=== PATIENT | female | born 1970 | race Caucasian/White ===

== ENCOUNTER 2020-08-19 23:05 | Observation (INO) | payer BC, SELFPAY ==
[2020-08-19 23:06] VITALS: BP 110/85; PULSE 113; RESP 18; TEMP 36.6; O2SAT 99; BMI 27.4
[2020-08-20] VITALS (10 sets, daily range): BP systolic 108–154; BP diastolic 70–100; PULSE 83–100; RESP 14–20; TEMP 36.6–37.2; O2SAT 97–100; BMI 24.5
--- NOTE | 2020-08-20 00:44 | ED.VIS.PED ---
History of Present Illness - History of Present Illness Chief Complaint: Mental Health Informant: Patient, - - Police Narrative: Patient brought in by police secondary to talking to herself and bizarre behavior. Patient is difficult to redirect and does not answer Past Medical History - Allergies and Home Meds Allergies/Adverse Reactions: Allergies No Known Allergies Allergy (Verified 08/19/20 23:08) - Medical/Surgical History Primary Care Physician: Care Physician,No Primary [Primary Care Provider] - Physical Exam Vital Signs/Narrative: Vital Signs Temp Pulse Resp BP Pulse Ox 97.8 F 113 H 18 110/85 H 99 08/19/20 23:06 08/19/20 23:06 08/19/20 23:06 08/19/20 23:06 08/19/20 23:06 ED Disposition - Plan for ED Patient: Referrals: Care Physician,No Primary [Primary Care Provider] -
--- NOTE | 2020-08-20 00:47 | ED.DCSUM_ITS ---
History of Present Illness Chief Complaint: Mental Health Informant: Patient, - - Police Onset: Today Narrative: Patient brought in with pink slip by police secondary to bizarre behavior and talking to people who were not there. Patient is difficult to redirect and has tangential thinking and cannot stay on a particular topic to answer questions. She tells me she said increased stress the last couple weeks so she did agree to an evaluation here. Patient cannot answer simple questions for me such as what her address is. She will start to list a house number, then suddenly starts discounting on her fingers and forgets what the initial question was. At one point she turned suddenly to look into the corner of the room and said well, hello there as if she was speaking to someone that was there. She commented that the person was pretty but was not able to describe them when I asked her. Nursing staff was able to speak with the patient's who state that she is never had anything like this in the past. She does reportedly take a couple medicines for blood pressure. She reportedly stopped taking her gabapentin several weeks ago. - Past Medical History (1) Hypertension Status: Chronic Past Medical History - Allergies and Home Meds Allergies/Adverse Reactions: Allergies No Known Allergies Allergy (Verified 08/19/20 23:08) Primary Care Physician: Care Physician,No Primary [Primary Care Provider] - Prior records reviewed: Yes Lives: Spouse/ Significant Other Smoking Status: Never smoker Review of Systems ROS: Unable to Obtain - Patient not able to be redirected to answer questions appropriately Physical Exam Vital Signs/Narrative: Vital Signs Temp Pulse Resp BP Pulse Ox 08/19/20 23:06 97.8 F 113 H 18 110/85 H 99 General: Well nourished, Well developed Head: Normocephalic ENT: Moist mucous membranes Neck: Supple Cardiovascular: Regular rate, Regular rhythm Respiratory: No distress, CTA bilaterally Abdomen: Soft, Nontender Neurological: Alert, - - Alert to self. Cannot tell me where she is or what her address is. Tells me that she lives with my and mommy and daddy.. Negative for: Oriented x3 Psych: Pressured Speech, Flight of Ideas Diagnostic/Tx/Re-eval 08/20/20 00:50 Mucosa - Nose SARS-CoV-2 Antigen (Rapid) - Final Laboratory Results 08/20/20 08/20/20 08/20/20 00:45 00:45 00:45 WBC 8.4 RBC 5.30 Hgb 13.2 Hct 41.3 MCV 77.9 L MCH 24.9 L MCHC 32.0 RDW Std Deviation 38.1 RDW Coeff of Ruben 13.5 Plt Count 438 MPV 8.8 Immature Gran % (Auto) 0.100 Neut % (Auto) 68.8 Lymph % (Auto) 22.8 [place] % (Auto) 6.2 Eos % (Auto) 1.4 Baso % (Auto) 0.7 Absolute Neuts (auto) 5.7 Absolute Lymphs (auto) 1.91 Nucleated RBC % 0 Sodium 137 Potassium 2.7 L* Chloride 110 H Carbon Dioxide 21.0 Anion Gap 6 BUN 9 Creatinine 0.77 Estim Creat Clear Calc 73.91 Est GFR (MDRD) Af Amer 103 Est GFR (MDRD) Non-Af 85 BUN/Creatinine Ratio 11.7 Glucose 84 Calcium 8.4 L Serum , Qual Urine Opiates Screen Urine Methadone Screen Ur Barbiturates Screen Ur Phencyclidine Scrn Ur Amphetamines Screen U Methamphetamin-MDMA U Benzodiazepines Scrn Urine Cocaine Screen U Cannabinoids Screen Ur Drug Screen Comment Ethyl Alcohol < 3.0 08/20/20 08/20/20 00:45 03:05 WBC RBC Hgb Hct MCV MCH MCHC RDW Std Deviation RDW Coeff of Ruben Plt Count MPV Immature Gran % (Auto) Neut % (Auto) Lymph % (Auto) [place] % (Auto) Eos % (Auto) Baso % (Auto) Absolute Neuts (auto) Absolute Lymphs (auto) Nucleated RBC % Sodium Potassium Chloride Carbon Dioxide Anion Gap BUN Creatinine Estim Creat Clear Calc Est GFR (MDRD) Af Amer Est GFR (MDRD) Non-Af BUN/Creatinine Ratio Glucose Calcium Serum , Qual NEGATIVE Urine Opiates Screen NEGATIVE Urine Methadone Screen NEGATIVE Ur Barbiturates Screen NEGATIVE Ur Phencyclidine Scrn NEGATIVE Ur Amphetamines Screen NEGATIVE U Methamphetamin-MDMA NEGATIVE U Benzodiazepines Scrn NEGATIVE Urine Cocaine Screen NEGATIVE U Cannabinoids Screen NEGATIVE Ur Drug Screen Comment Ethyl Alcohol Patient has been observed going through items in the room. Removal items needed to be taken out of the room. Patient is agitated, moving about the room, talking to people that are not there. She is redirectable. Any history from the patient is extremely difficult as she has extreme tangential thinking. Blood work is significant only for potassium low at 2.7. She is given 40 mEq p.o. potassium replacement. Alcohol and urine tox screen are negative. Patient was [facility] with [facility]. Liss was able to speak with the patient's by phone as well. At this time she will be looking for placement for further psychiatric evaluation. Addendum: Patient has been accepted for transfer to [facility]. Disposition: [facility] Disposition - Plan for ED Patient: Disposition: Psychiatric Hospital or Unit Diagnosis: Psychosis Referrals: Care Physician,No Primary [Primary Care Provider] -
[2020-08-20 00:52] LABS: Absolute Lymphocyte Count 1.91 X10^3/uL (0.83-4.51); Absolute Neutrophil Count 5.7 X10^3/uL (2.0-7.7); Basophil# 0.06 X10^3/uL; Basophil% 0.7 % (0-1); Eosinophil# 0.12 X10^3/uL; Eosinophils% 1.4 % (0-5); Hematocrit 41.3 % (37-47); Hemoglobin 13.2 g/dL (12.0-15.0); Lymphocyte # 1.91 X10^3/ul (4.0); Lymphocyte % 22.8 % (19-41); Mean Corpuscular Hgb 24.9 pg (27.0-32.0); Mean Corpuscular Volume 77.9 fL (81-99); Mean Platelet Vol. 8.8 fl (6.2-12.0); Monocyte# 0.52 X10^3/uL; Monocyte% 6.2 % (0-10); NRBC Flagged by Analyzer 0 % (0-5); Neutrophil # 5.74 X10^3/uL (2.7-7.7); Neutrophil % 68.8 % (47-70); Platelet Count 438 K/mm3 (150-450); RBC Distribution Width CV 13.5 % (11.6-14.6); RBC Distribution Width SD 38.1 fl (35.1-43.9); White Blood Count 8.4 K/mm3 (4.4-11.0)
[2020-08-20 01:09] LABS: Anion Gap 6 (5-15); BUN 9 mg/dL (7-18); BUN/Creat Ratio 11.7 RATIO (10-20); Calcium,Total 8.4 mg/dL (8.5-10.1); Chloride 110 mmol/L (98-107); Creatinine, Serum 0.77 mg/dL (0.55-1.02); EST Glomerular Filtration Rate 85 mL/min (>60); Est Glom Filt Rate - Afr Amer 103 mL/min (>60); Estimated Creatinine Clearance 73.91 ml/min; Glucose 84 mg/dL (74-106); Potassium 2.7 mmol/L (3.5-5.1); Sodium Level 137 mmol/L (136-145)
[2020-08-20 01:13] LABS: Internal QC Validated? YES +Cl - CLEAR BKGD; Pregnancy, Serum, hCG Quali. NEGATIVE Negative
[2020-08-20 01:17] LABS: Alcohol, Blood (Medical)-Serum < 3.0 mg/dL
[2020-08-20 03:59] LABS: Amphetamine Urine VISTA NEGATIVE (<1000 ng/mL); Barbiturate Urine VISTA NEGATIVE (< 200 ng/mL); Benzodiazepine Urine VISTA NEGATIVE (< 200 ng/mL); Cocaine Urine VISTA NEGATIVE (< 300 ng/mL); Ecstacy Urine VISTA NEGATIVE (< 500 ng/mL); Methadone Urine VISTA NEGATIVE (< 300 ng/mL); PCP Urine VISTA NEGATIVE (< 25 ng/mL); THC Urine VISTA NEGATIVE (< 50 ng/mL); Vista UDS pH Range 6
--- NOTE | 2020-08-20 04:01 | ED.RN ---
PAGED CRISIS TO SPEAK WITH THIS PT, SANTA IS COPPERSMITH APPRENTICE
--- NOTE | 2020-08-20 04:44 | ED.RN ---
PT CONTINUES TO TALK TO PEOPLE WHO ARE NOT IN THE ROOM. MOSTLY HER GRANDCHILDREN AND SPOUSE. PT DID SPEAK WITH CRISIS FOR A FEW MINUTES BUT STATED THAT SHE NEEDED TO HANG UP THE PHONE BECAUSE SHE NEEDED TO CARE FOR HER GRANDCHILDREN AND A SITUATION OUTSIDE THE ROOM. I ASKED PT IF SHE WANTED SOMETHING TO HELP HER SLEEP IT WAS 0430 AND SHE HASN'T BEEN TO SLEEP YET. SHE SAID THAT WOULD BE OKAY AND A SPRITE WELL.
[2020-08-20] MEDS: Zolpidem Tartrate 5 MG Tablet PO (04:53)
--- NOTE | 2020-08-20 06:56 | ED.RN ---
CALLED PTS , DOTTY TO UPDATE HIM ON HER PLACEMENT. DOTTY WAS VERY ANGRY THAT PT WAS GETTING PLACED AT A PSYCHIATRIC FACILITY. ALSO ANGRY THAT SHE WAS GETTING PLACED IN [place] AND WANTED HER PLACED WITH THE [facility]. WAS EDUCATED ON PLACEMENT PROCEDURES WITH CRISIS. HE STILL DIDN'T LIKE MY ANSWERS. I PAGED CRISIS TO HAVE THEM TALK WITH SPOUSE THEY ARE THE ONES THAT FIND FACILITIES TO PLACE PT. CHARGE NURSE UPDATED. TRANSPORT SCHEDULED IN 15 MINUTES, CHARGE NURSE STATES DO NOT CANCEL.
--- NOTE | 2020-08-20 07:37 | CT_ITS ---
STUDY: CT BRAIN WITHOUT CONTRAST REASON FOR EXAM: Female, 50 years old. MENTAL STATUS CHANGE -- HALLUCINATIONS RADIATION DOSAGE (If Supplied By Facility): CTDIvol = ( 44.99 ) mGy, DLP = ( 779.24 ) mGycm TECHNIQUE: Transaxial CT imaging of the brain was performed without administration of intravenous contrast material. Individualized dose optimization techniques were used for this CT. COMPARISON: No relevant priors. FINDINGS: Normal soft tissue structures. Normal calvarium. Normal size ventricles and extra-axial spaces for the patient''s age. Normal white matter tracts of the cerebral hemispheres. Normal basal ganglia and thalami. Normal brainstem. Normal cerebellum. There is no intracranial hemorrhage. There are no findings of an acute ischemic infarction. Normal visualized paranasal sinuses. CT/Brain/Head without Contrast IMPRESSION: Normal unenhanced CT scan of the brain. Electronically Signed: Dwaine Buck MD at 8:55 EST , Service support ,
--- NOTE | 2020-08-20 07:53 | ED.RN ---
THIS RN HAD A LONG PHONE CONVERSATION WITH PT . STATES SHE IS NOT SUICIDAL OR HOMICIDAL., NOR IS SHE A THREAT TO OTHERS. STATES THIS WILL NOT HAPPEN. STATES I ONLY WANT HER TRANSFERRED A MEDICAL TRANSFER, NOT A PSYCHIATRIC TRANSFER. THIS RN LISTENED TO PTS CONCERN ABOUT BRAIN TUMOR. EXTRA TESTS TO BE ORDERED. PT CONTINUES. TO TALK TO PEOPLE WHO DO NOT EXISTS. THIS RN PAGED CRISIS AND UPDATED THEM AGAIN ON POSITION. CRISES TO CONTACT . IF PREFERS PT WILL BE DISCHARGED HOME WITH HIM
--- NOTE | 2020-08-20 08:04 | ED.RN ---
PT CURRENTLY IN ROOM TALKING AGAIN WITH PEOPLE WHO DO NOT EXISTS. PT THEN STRIPS NAKED AND BEGINS TO WRAP HERSELF IN THE ROOM CURTAIN. PT REDIRECTED TO DRESS
--- NOTE | 2020-08-20 08:09 | ED.RN ---
POOL CALLS BACK. TALKED TO . IF CT SCAN AND THYROID TESTS ARE NORMAL HE PREFERS TO TAKE HER HOME. DR PINEDA UPDATED HE HAS TAKEN OVER CARE
[2020-08-20 08:12] LABS: Mucous, Urine 0 SEEN /hpf (<or=2+)
[2020-08-20 08:28] LABS: Color, Urine Yellow (Yellow); Glucose, Dipstick Normal (Normal); Ketone-Dipstick Negative (Negative); Leukocyte Esterase-Dipstick 25 /ul (Negative); Nitrite-Dipstick Positive (Negative); Occult Blood-Urine 10 /ul (Negative); Protein-Dipstick Negative (Negative); Specific Gravity, Urine 1.015 (1.002-1.030); Urine Bilirubin Dipstick Negative (Negative); Urine Clarity Clear (Clear); Urine Urobilinogen Normal (Normal)
[2020-08-20 08:36] LABS: Red Blood Cells-Urine 0-5 SEEN /hpf (0-5); White Blood Cells 0-5 SEEN /hpf (0-5)
[2020-08-20 08:37] LABS: Bacteria 2+ /hpf (None Seen); Squamous Epithelial Cells - UA 0-5 SEEN /hpf (5-10)
[2020-08-20 08:38] LABS: Thyroid Stim Hormone (TSH) 2.75 uIU/mL (0.358-3.74)
--- NOTE | 2020-08-20 09:18 | ED.RN ---
DR TERAN PT FAMILY/ DOES NOT WANT PT ADMITTED TO THIS FACILITY. REQUESTS PT TO BE TRANSFERRED TO [facility] OR [facility]
--- NOTE | 2020-08-20 09:59 | ED.RN ---
pt continues to come out of room, pt continues talking with individuals who are not there. pt is redirectable. pt currently asking for aan emesis basin so her friend can vomit in it
[2020-08-20] MEDS: Ceftriaxone 1 GM/50 ML BAG IV (10:34)
--- NOTE | 2020-08-20 10:42 | ED.RN ---
dr hunt talked with . states ok with admission to [facility]
--- NOTE | 2020-08-20 11:53 | HP.PCM_ITS ---
History of Present Illness Date of Admission: 08/20/20 Chief Complaint: Mental health The patient is a 50 year old F with a PMH as below who presented to the hospital by police with a [place] pink slip secondary to bizarre behavior. She was actively hallucinating and has very tangential thinking and has difficulty get a history from some most of the history was obtained from chart review. Per the she has never behaved like this before. She has not been sick prior to today no symptoms of infection previously. She denies any fevers or chills or any signs of dysuria. She does think she is in [place] and does not know why she is here. Initially she was found to be hypokalemic with a potassium of 2.7 which was replaced and she had asymptomatic bacteriuria with 2+ urine bacteria, 25 leukocyte esterase, and a positive nitrite without fever or leukocytosis. Transportation arrangements were made to an inpatient psychiatric facility however the adamantly refused he would not like her to be transferred to an inpatient psych unit. Past Medical History Past Medical History (Chronic Problems): Chronic Problems Hypertension (Chronic) Allergies No Known Allergies Allergy (Verified 08/19/20 23:08) Home Medications: Ambulatory Orders Medication Instructions Recorded Estradiol 0.5 mg PO DAILY 08/20/20 Gabapentin 08/20/20 Losartan Potassium 25 mg PO DAILY 08/20/20 Zolpidem Tartrate [Ambien 5 mg PO QHS 08/20/20 (Generic)] Surgical History: hysterectomy Psychiatric History: No pertinent psych hx Lives: Spouse/ Significant Other Smoking Status: Never smoker Tobacco Use: Non-smoker Alcohol: None Drugs: None - *Family History Maternal History Items: Cancer - Ovarian Paternal History Items: Cancer - Liver Review of Systems Constitutional: Denies: Chills, Fever, Weight Change HEENT: Denies: Head Aches, Sinus Congestion, Sinus Drainage Cardiovascular: Denies: Chest Pain, Palpitations Respiratory: Denies: Cough, Shortness of breath at rest, Sputum production Gastrointestinal: Denies: Abdominal Pain, Nausea, Vomiting Genitourinary: Denies: Dysuria Musculoskeletal: Denies: Joint Pain, Joint Tenderness Skin: Denies: Rash, Wounds Neurological: Denies: Numbness, Tingling, Focal weakness Psychiatric: Denies: Anxiety, Depression Hematologic/ Lymphatic: Denies: Easy Bruising, Easy Bleeding VTE Information - Inpt Only VTE Present on Admission: No Patient Problems: Active and Suspected Problems Psychosis (Acute) - Physical Exam Vitals/I&O's: Vital Signs Temp Pulse Resp BP Pulse Ox 97.9 F 100 18 154/92 H 100 08/20/20 10:31 08/20/20 10:31 08/20/20 10:39 08/20/20 10:31 08/20/20 10:31 Oxygen Delivery Method Room Air Weight: 138 lb 3.677 oz Body Mass Index (BMI) 24.5 General: Alert, No apparent distress HEENT: Atraumatic, PERRLA, EOMI, Normocephalic Oral: Moist Mucosa Neck: Supple, No JVD Lungs: Clear to auscultation, Normal air movement, No rhonchi, No wheeze, No rales Cardiovascular: Regular rate, Regular Rhythm, Normal S1, Normal S2, No murmurs Abdomen: Soft, Non Tender, Non-Distended, No Hepato-splenomegaly Extremities: No edema, Capillary Refill Less than 3 Seconds Skin: No rashes, No breakdown Neurological: Neuro grossly intact, Sensory exam intact to light touch and pain Psych/Mental Status: Hallucinations, Restless, - - Speech is both pressured and tangential Microbiology Past 72 Hours 08/20/20 00:50 Mucosa - Nose SARS-CoV-2 Antigen (Rapid) - Final Laboratory Results 08/20/20 00:45: WBC 8.4, RBC 5.30, Hgb 13.2, Hct 41.3, MCV 77.9 L, MCH 24.9 L, MCHC 32.0, RDW Std Deviation 38.1, RDW Coeff of Ruben 13.5, Plt Count 438, MPV 8.8, Immature Gran % (Auto) 0.100, Neut % (Auto) 68.8, Lymph % (Auto) 22.8, [place] % (Auto) 6.2, Eos % (Auto) 1.4, Baso % (Auto) 0.7, Absolute Neuts (auto) 5.7, Absolute Lymphs (auto) 1.91, Nucleated RBC % 0 08/20/20 00:45: Sodium 137, Potassium 2.7 L*, Chloride 110 H, Carbon Dioxide 21.0, Anion Gap 6, BUN 9, Creatinine 0.77, Estim Creat Clear Calc 73.91, Est GFR (MDRD) Af Amer 103, Est GFR (MDRD) Non-Af 85, BUN/Creatinine Ratio 11.7, Glucose 84, Calcium 8.4 L 08/20/20 00:45: Ethyl Alcohol < 3.0 08/20/20 00:45: Serum , Qual NEGATIVE 08/20/20 00:45: TSH 2.75 08/20/20 03:05: Urine Opiates Screen NEGATIVE, Urine Methadone Screen NEGATIVE, Ur Barbiturates Screen NEGATIVE, Ur Phencyclidine Scrn NEGATIVE, Ur Amphetamines Screen NEGATIVE, U Methamphetamin-MDMA NEGATIVE, U Benzodiazepines Scrn NEGATIVE, Urine Cocaine Screen NEGATIVE, U Cannabinoids Screen NEGATIVE, Ur Drug Screen Comment 08/20/20 03:05: Urine Color Yellow, Urine Clarity Clear, Urine pH 5.0, Ur Specific Bland 1.015, Urine Protein Negative, Urine Glucose (UA) Normal, Urine Ketones Negative, Urine Occult Blood 10 H, Urine Nitrite Positive H, Urine Bilirubin Negative, Urine Urobilinogen Normal, Ur Leukocyte Esterase 25 H, Urine RBC 0-5 SEEN, Urine WBC 0-5 SEEN, Ur Squamous Epith Cells 0-5 SEEN, Urine Bacteria 2+, Urine Mucus 0 SEEN Current Medications Acetaminophen (Acetaminophen 325 Mg Tablet) 650 mg PO Q6H PRN PRN PRN Reason: Pain Score 1-10/Temp > 100.7 F Ceftriaxone Sodium (Rocephin) 1 gm in 50 mls @ 100 mls/hr IV Q24 SAMAN Melatonin (Melatonin 3 Mg Tablet) 3 mg PO QHS PRN PRN PRN Reason: INSOMNIA Ondansetron HCl (Ondansetron 4 Mg/2 Ml Vial) 4 mg IV Q8H PRN PRN PRN Reason: NAUSEA/VOMITING Sodium Chloride (0.9% Saline Lock 10 Ml Syringe) 10 - 40 ml IV UD PRN PRN Reason: SALINE FLUSH Assessment/Plan All Active Problems Psychosis (Acute) 1. Possible psychosis versus's new onset schizophrenia/possible UTI -She presented to the hospital by police for irrational and bizarre behavior -Psychiatric hospital did accept her for admission however the decided he did not want her to go to a psych hospital. He wants her to be here and treated for a UTI, she is afebrile without a leukocytosis and per her, no dysuria or flank pain or pelvic pain or frequency -The ED physician discussed with him that if the treatment did not resolve an improvement in her symptoms that she would still need to be transferred to a [facility], at which point he replied that he would just sign her out AMA and take her to [place] because that is where his kids are. Driving to a [facility] hospital in [place] was too far away -Continue with Rocephin, urine culture is pending 2. Hypertension -Blood pressure is stable -Continue with losartan DVT: Low risk OBSV E&M: 27701 Initial observation care L2
--- NOTE | 2020-08-20 12:00 | CASEMGMT ---
Social Work Per ED elementary school social worker, Poly patient was pending psychiatric placement but spouse is not agreeable. Crisis was following for psychiatric placement. Patient admitted to received antibiotics for UTI per medical team. Per nursing staff patient spouse plans for patient to discharge to home tomorrow and go back to [facility]. Telephone call to Diane Price. Diane updated on patient admission to acute care setting. Crisis to note their chart and is able to be consulted if further needs arise. PLAN: Discharge to home with spouse. Lane BROWN, BRIS
[2020-08-20 12:47] LABS: Magnesium 2.3 mg/dL (1.6-2.6); Phosphorus 4.2 mg/dL (2.5-4.9)
[2020-08-20 13:52] LABS: AST(SGOT) 7 U/L (15-37); Alanine Aminotransfer ALT/SGPT 12 U/L (13-56); Albumin, Serum 3.5 g/dL (3.2-5.0); Alkaline Phosphatase 77 U/L (45-117); Bilirubin, Direct 0.08 mg/dL (0.00-0.30); Globulin 3.1 g/dL (2.2-4.2); Protein, Total 6.6 g/dL (6.4-8.2)
[2020-08-20] MEDS: Acetaminophen 325 MG Tablet 650 MG PO (18:24)
--- NOTE | 2020-08-20 19:02 | NURSING ---
called Helio to discuss pt home med list as pt was asking about her medications. He was not sure of all of the medications or dosages but could confirm that pt had not taken gabapentin for about 3 weeks due to making her feel drowsy. He stated pt PCP who prescribed meds is a Dr Brisa Turner from [facility], office number .
[2020-08-20] MEDS: 0.9% Saline Lock 10 ML Syringe IV (21:48)
[2020-08-21 03:45] VITALS: BP 131/66; PULSE 78; RESP 18; TEMP 36.8; O2SAT 99
[2020-08-21 06:40] LABS: Absolute Lymphocyte Count 1.56 X10^3/uL (0.83-4.51); Absolute Neutrophil Count 2.1 X10^3/uL (2.0-7.7); Basophil# 0.04 X10^3/uL; Basophil% 0.9 % (0-1); Eosinophil# 0.12 X10^3/uL; Eosinophils% 2.8 % (0-5); Hematocrit 40.1 % (37-47); Hemoglobin 12.5 g/dL (12.0-15.0); Lymphocyte # 1.56 X10^3/ul (4.0); Lymphocyte % 36.8 % (19-41); Mean Corp Hgb Conc 31.2 g/dL (32-36); Mean Corpuscular Hgb 24.4 pg (27.0-32.0); Mean Corpuscular Volume 78.3 fL (81-99); Mean Platelet Vol. 8.5 fl (6.2-12.0); Monocyte# 0.41 X10^3/uL; Monocyte% 9.7 % (0-10); NRBC Flagged by Analyzer 0 % (0-5); Neutrophil % 49.6 % (47-70); Platelet Count 399 K/mm3 (150-450); RBC Distribution Width CV 13.6 % (11.6-14.6); RBC Distribution Width SD 38.7 fl (35.1-43.9); Red Blood Count 5.12 M/mm3 (4.2-5.4); White Blood Count 4.2 K/mm3 (4.4-11.0)
[2020-08-21 07:07] LABS: Anion Gap 4 (5-15); BUN 9 mg/dL (7-18); BUN/Creat Ratio 15.7 RATIO (10-20); Calcium,Total 8.8 mg/dL (8.5-10.1); Chloride 112 mmol/L (98-107); Creatinine, Serum 0.58 mg/dL (0.55-1.02); EST Glomerular Filtration Rate 119 mL/min (>60); Est Glom Filt Rate - Afr Amer 144 mL/min (>60); Estimated Creatinine Clearance 98.12 ml/min; Glucose 87 mg/dL (74-106); Potassium 3.5 mmol/L (3.5-5.1); Sodium Level 142 mmol/L (136-145)
[2020-08-21] MEDS: Acetaminophen 325 MG Tablet 650 MG PO (08:35)
[2020-08-21 08:37] VITALS: BP 142/95; PULSE 94; RESP 18; TEMP 36.6; O2SAT 99
[2020-08-21 08:50] VITALS: RESP 18
[2020-08-21] MEDS: Ceftriaxone 1 GM/50 ML BAG IV (09:39)
--- NOTE | 2020-08-21 13:16 | PCM.DC ---
- Discharge Diagnoses Current Active Problems: Current Active and Chronic Problems Hypertension (Chronic) Psychosis (Acute) You will use the following diet at home:: Regular Your food should be the consistency of: Regular Your liquids should be the consistency of: Regular/Thin Discharge Activity: Return to Normal Activity Call your doctor if you observe: Fever of 101 or Higher, Shortness of breath, Dizziness, Fainting spells, Swelling in the ankles, Chest pain, Increased palpitations (irregular heartbeat) Instructions: ED Urinary Tract Infections in Women Allergies/Adverse Reactions: Allergies No Known Allergies Allergy (Verified 08/19/20 23:08) Medications to take at Discharge Estradiol 0.5 mg PO DAILY 08/20/20 Gabapentin 08/20/20 Losartan Potassium 25 mg PO DAILY 08/20/20 Zolpidem Tartrate [Ambien] 5 mg PO QHS 08/20/20 Cefdinir [Omnicef [equiv]] 300 mg PO Q12H #6 cap 08/21/20 The following prescriptions were given: Cefdinir [Omnicef [equiv]] 300 mg PO Q12H #6 cap Transmission Status: Pending to [facility] Primary Care Physician: Care Physician,No Primary [Primary Care Provider] - Please follow up with your Primary Care Physician in: 3-5 days Test Results: Test results from this visit will be discussed in further detail at your follow-up appointment, if applicable.
[2020-08-21 14:29] VITALS: BP 142/96; PULSE 78; RESP 18; TEMP 36.7; O2SAT 98
--- NOTE | 2020-08-21 15:50 | DS.PCM_ITS ---
Discharge Date and Diagnosis - Problem List Patient Problems: Active and Suspected Problems Psychosis (Acute) Date of Admission: 08/20/20 Date of Discharge: 08/21/20 - Primary Discharge Diagnosis Acute Problems: Active Problems Psychosis (Acute) - Secondary Discharge Diagnosis Chronic Problems: Chronic Problems Hypertension (Chronic) Hospital Course and Treatment Imaging Results: Clinical Impression(s) from Imaging Studies Brain CT 08/20/20 07:37 IMPRESSION: Normal unenhanced CT scan of the brain. Electronically Signed: Dwaine Buck MD at 8:55 EST , Service support , Operations: None Procedures: None Summary of Care Provided: Per HPI: The patient is a 50 year old F with a PMH as below who presented to the hospital by police with a [place] pink slip secondary to bizarre behavior. She was actively hallucinating and has very tangential thinking and has difficulty get a history from some most of the history was obtained from chart review. Per the she has never behaved like this before. She has not been sick prior to today no symptoms of infection previously. She denies any fevers or chills or any signs of dysuria. She does think she is in [place] and does not know why she is here. Initially she was found to be hypokalemic with a potassium of 2.7 which was replaced and she had asymptomatic bacteriuria with 2+ urine bacteria, 25 leukocyte esterase, and a positive nitrite without fever or leukocytosis. Transportation arrangements were made to an inpatient psychiatric facility however the adamantly refused he would not like her to be transferred to an inpatient psych unit. Hospital Course: 1. Metabolic encephalopathy secondary to E. coli UTI -She presented to the hospital by police for irrational and bizarre behavior -Psychiatric hospital did accept her for admission however the decided he did not want her to go to a psych hospital. He wants her to be here and treated for a UTI, she is afebrile without a leukocytosis and per her, no dysuria or flank pain or pelvic pain or frequency -The ED physician discussed with him that if the treatment did not resolve an improvement in her symptoms that she would still need to be transferred to a psych hospital, at which point he replied that he would just sign her out AMA and take her to [place] because that is where his kids are. Driving to a psych hospital in [place] was too far away -Started on Rocephin, and the culture demonstrated greater than 100,000 CFU of E. coli. She appeared much better today, she did not have any auditory hallucinations, she was evaluated by crisis who did not think she needed to go to psychiatric unit today. is more than happy to take her home, I discussed the discharge plans with her this morning she expressed understanding risk benefits of going home and would like to go home. Now that she is more lucid she said that for 3 to 4 days prior to admission she was feeling sick and had a fever at home. She remained afebrile here without a leukocytosis. She will complete a total of 5 days of antibiotics, and if her culture shows resistance to cefdinir, I will call and provide a new prescription. 2. Hypertension -Blood pressure is stable -Continue with losartan Patient Problems: Active and Suspected Problems Psychosis (Acute) - Physical Exam Vitals/I&O's: Vital Signs Temp Pulse Resp BP Pulse Ox 98.1 F 78 18 142/96 H 98 08/21/20 14:29 08/21/20 14:29 08/21/20 14:29 08/21/20 14:29 08/21/20 14:29 Oxygen Delivery Method Room Air Weight: 138 lb 3.677 oz Body Mass Index (BMI) 24.5 Intake and Output for Last 24 Hours 08/19/20 08/20/20 08/21/20 23:59 23:59 23:59 Intake Total 800 / 900 1000 / 1000 Balance 800 / 900 1000 / 1000 General: Alert, Cooperative, No apparent distress, - - Oriented x2, she knows she is in [place] HEENT: Atraumatic, PERRLA, EOMI, Normocephalic Oral: Moist Mucosa Neck: Supple, No JVD Lungs: Clear to auscultation, Normal air movement, No rhonchi, No wheeze, No rales Cardiovascular: Regular rate, Regular Rhythm, Normal S1, Normal S2, No murmurs Abdomen: Soft, Non Tender, Non-Distended, No Hepato-splenomegaly Extremities: No edema, Capillary Refill Less than 3 Seconds Skin: No rashes, No breakdown Neurological: Neuro grossly intact, Sensory exam intact to light touch and pain Psych/Mental Status: Normal Affect, Appropriate, - - No auditory hallucinations, no tangential or pressured speech today Microbiology Past 72 Hours 08/20/20 03:05 Urine, Clean Catch Urine Culture - Preliminary Presumptive E. coli 08/20/20 00:50 Mucosa - Nose SARS-CoV-2 Antigen (Rapid) - Final Laboratory Results 08/21/20 06:30: WBC 4.2 L, RBC 5.12, Hgb 12.5, Hct 40.1, MCV 78.3 L, MCH 24.4 L, MCHC 31.2 L, RDW Std Deviation 38.7, RDW Coeff of Ruben 13.6, Plt Count 399, MPV 8.5, Immature Gran % (Auto) 0.200, Neut % (Auto) 49.6, Lymph % (Auto) 36.8, [place] % (Auto) 9.7, Eos % (Auto) 2.8, Baso % (Auto) 0.9, Absolute Neuts (auto) 2.1, Absolute Lymphs (auto) 1.56, Nucleated RBC % 0 08/21/20 06:30: Sodium 142, Potassium 3.5, Chloride 112 H, Carbon Dioxide 26.0, Anion Gap 4 L, BUN 9, Creatinine 0.58, Estim Creat Clear Calc 98.12, Est GFR (MDRD) Af Amer 144, Est GFR (MDRD) Non-Af 119, BUN/Creatinine Ratio 15.7, Glucose 87, Calcium 8.8 Discharge Activity: Return to Normal Activity Call your doctor if you observe: Fever of 101 or Higher, Shortness of breath, Dizziness, Fainting spells, Swelling in the ankles, Chest pain, Increased palpitations (irregular heartbeat) Home Medications: Medications to take at Discharge Estradiol 0.5 mg PO DAILY 08/20/20 Gabapentin 08/20/20 Losartan Potassium 25 mg PO DAILY 08/20/20 Zolpidem Tartrate [Ambien] 5 mg PO QHS 08/20/20 Cefdinir [Omnicef [equiv]] 300 mg PO Q12H #6 cap 08/21/20 Following Prescriptions Were Given to Patient: Cefdinir [Omnicef [equiv]] 300 mg PO Q12H #6 cap Transmission Status: Received by [facility] Primary Care Physician: Care Physician,No Primary [Primary Care Provider] - Please follow up with your Primary Care Physician in: 3-5 days Patient Instructions: ED Urinary Tract Infections in Women Disposition: Home Minutes spent on discharge:: 35 Patient Condition:: Stable Medical Necessity - Tobacco Use Smoking Status: Never smoker Tobacco Use: Non-smoker Meaningful Use Info Meaningful Use Diagnoses (Choose all that apply): None applicable OBSV E&M: 36194 Observation care discharge
== END 2020-08-21 14:25 | disposition home or self-care (01) ==
LOC: ED 08-20 05:37 → MS3 08-20 12:36
PROVIDERS: Admitting Provider Family Medicine; Emergency Provider Emergency Medicine; Visit Provider Family Medicine
DX: F29 Unspecified psychosis not due to a substance or known physiological condition (principal); N39.0 Urinary tract infection, site not specified; I10 Essential (primary) hypertension; E87.6 Hypokalemia; Z79.899 Other long term (current) drug therapy; G93.41 Metabolic encephalopathy; B96.20 Unspecified Escherichia coli [E. coli] as the cause of diseases classified elsewhere
CPT/HCPCS: 36415; 70450; 80048; 80076; 80307; 81001; 82077; 82140; 83735; 84100; 84443; 84703; 85025; 87086; 87088; 87186; 87426; 96365; 96366; 99218; 99285; A4216; G0378